=== PATIENT | male | born 1960 | race Caucasian/White ===

== ENCOUNTER 2023-02-04 12:03 | Outpatient (CLI) | payer BC ==
[~2023-02-04 12:03] MED LIST: PERFLUTREN PROTEIN-A MICROSPHR (Optison) 0.22 MG/ML 3ML VIAL IV ONE
== END 2023-02-04 23:59 | disposition home or self-care (01) ==
LOC: CARD DIAG 12:03
PROVIDERS: ATTEND Student in an Organized Health Care Education/Training Program
DX: I08.0 Rheumatic disorders of both mitral and aortic valves (principal); R06.02 Shortness of breath; I50.22 Chronic systolic (congestive) heart failure
CPT/HCPCS: 93308; Q9956